=== PATIENT | female | born 1975 | race Caucasian/White ===

== ENCOUNTER 2018-09-20 16:10 | Emergency (ER) | payer OTHER | END 2018-09-20 17:40 | disposition home or self-care (01) | LOC: FER 16:10 ==

== ENCOUNTER 2020-06-22 15:46 | Emergency (ER) | payer OTHER ==
[2020-06-22 16:25] VITALS: TEMP 98.1; BMI 39.5
[2020-06-22 16:50] LABS: BASO % 1.2 % (0-2.0); HEMATOCRIT 38.8 % (32.4-45.2); HEMOGLOBIN 12.6 GM/dl (10.7-15.3); LYMPH % 26.3 % (8-40); MCH 29.4 pg (25.7-33.7); MCHC 32.3 g/dl (32.0-36.0); MEAN CELL VOLUME 90.9 fl (80-96); MEAN PLT VOLUME 8.6 fl (7.5-11.1); MONO % 9.2 % (3.8-10.2); NEUT % 63.3 % (42.8-82.8); PLATELET COUNT 180 K/MM3 (134-434); RBC 4.27 M/mm3 (3.60-5.2); RDW 15.3 % (11.6-15.6); WHITE BLOOD COUNT 7.7 K/mm3 (4.0-10.8)
[2020-06-22 16:53] LABS: ALBUMIN 3.6 g/dl (3.4-5.0); BILIRUBIN,TOTAL 0.5 mg/dl (0.2-1); CALCIUM 9.5 mg/dl (8.5-10); CREATININE 1.3 mg/dl (0.55-1.3); MAGNESIUM 1.8 mg/dL (1.8-2.4); POTASSIUM 4.3 mmol/L (3.5-5.1); TOT PROT 6.2 g/dl (6.4-8.2)
[2020-06-22 17:27] VITALS: BP 136/71; PULSE 90
== END 2020-06-22 17:33 | disposition home or self-care (01) ==
LOC: FER 15:46
DX: R20.2 Paresthesia of skin (principal); R51.9 Headache, unspecified
CPT/HCPCS: 36415; 70450-TC; 80053; 83735; 85025; 99284-25

== ENCOUNTER 2021-04-19 14:13 | Inpatient (IN) | payer OTHER ==
[2021-04-19] MEDS ORDERED: ACETAMINOPHEN 1000 MG/100 ML BAG IVPB ONE (15:11)
[2021-04-19] MEDS ORDERED: ACETAMINOPHEN INJECTION 100 ML IVPB ONE (15:49)
[2021-04-19] MEDS ORDERED: morphine SULFATE 4 MG/ML VIAL IVPUSH ONE (16:20)
[2021-04-19] MEDS ORDERED: morphine SULFATE 4 MG/ML VIAL ONE (16:37)
[2021-04-19 16:40] LABS: BASO % 0.2 % (0-2.0); HEMATOCRIT 38.1 % (32.4-45.2); HEMOGLOBIN 12.4 GM/dL (10.7-15.3); LYMPH % 12.5 % (8-40); MCH 29.5 pg (25.7-33.7); MCHC 32.6 g/dl (32.0-36.0); MEAN CELL VOLUME 90.4 fl (80-96); MEAN PLT VOLUME 9.5 fl (7.5-11.1); MONO % 14.5 % (3.8-10.2); NEUT % 72.8 % (42.8-82.8); PLATELET COUNT 150 10^3/uL (134-434); RBC 4.22 M/mm3 (3.60-5.2); RDW 15.3 % (11.6-15.6)
[2021-04-19 16:41] LABS: VENOUS BASE EXCESS -1.5 mmol/L (-2-2); VENOUS O2 SATURATION 77.4 % (70-80); VENOUS PCO2 33.8 mmHg (38-52); VENOUS PH 7.433 (7.310-7.410)
[2021-04-19 16:53] VITALS: BMI 41.0
[2021-04-19 17:04] LABS: CHLORIDE 107 mmol/L (98-107); SODIUM 142 mmol/L (136-145)
[2021-04-19 17:06] LABS: ANION GAP 9 MMOL/L (8-16); CALCIUM 9.5 mg/dL (8.5-10.1); CO2 26 mmol/L (21-32); GLUCOSE,RANDOM 103 mg/dL (74-106)
[2021-04-19] MEDS ORDERED: SODIUM CHLORIDE 1,000 ML IV STA (17:06)
[2021-04-19 17:07] LABS: ALBUMIN 3.4 g/dl (3.4-5.0); BLOOD UREA NITROGEN 26.2 mg/dL (7-18)
[2021-04-19 17:10] LABS: CREATININE 2.5 mg/dL (0.55-1.3); SGOT/AST 28 U/L (15-37); SGPT/ALT 22 U/L (13-61)
[2021-04-19 17:11] LABS: BILIRUBIN,TOTAL 0.2 mg/dL (0.2-1); TOT PROT 6.6 g/dl (6.4-8.2)
[2021-04-19 17:12] LABS: ALK PHOS 96 U/L (45-117)
[2021-04-19] MEDS ORDERED: HALOPERIDOL LACTATE 5 MG/ML IM ONE (20:07)
[2021-04-19] MEDS ORDERED: MIDAZOLAM HCL 2 MG/2 ML SINGLE DOSE VIAL IVPUSH ONE (20:07)
[2021-04-19] MEDS ORDERED: HALOPERIDOL LACTATE 5 MG/ML ONE (20:16)
[2021-04-19] MEDS ORDERED: MIDAZOLAM HCL 2 MG/2 ML SINGLE DOSE VIAL ONE (20:16)
[2021-04-19] MEDS ORDERED: ACETAMINOPHEN 1000 MG/100 ML BAG IVPB PRN (22:13)
[2021-04-19] MEDS: LACTATED RINGERS SOLUTION 1,000 ML/1,000 ML INFUS.BAG IV SCH (22:39)
[2021-04-19 23:09] LABS: PHOSPHOROUS 2.8 mg/dL (2.5-4.9)
[2021-04-20 05:21] LABS: PH,URINE 5.5 (5.0-8.0); URINE APPEARANCE CLEAR; URINE BILIRUBIN NEGATIVE (NEGATIVE); URINE COLOR YELLOW; URINE GLUCOSE (UA) NEGATIVE (NEGATIVE); URINE KETONE TRACE (NEGATIVE); URINE LEUK ESTERASE NEGATIVE (NEGATIVE); URINE NITRITE NEGATIVE (NEGATIVE); URINE PROTEIN TRACE (NEGATIVE); URINE UROBILINOGEN 0.2 mg/dL (0.2-1.0)
[2021-04-20 05:29] LABS: COCAINE, UR NEGATIVE (NEGATIVE); METHADONE, UR NEGATIVE (NEGATIVE); PHENCYCLIDINE,URINE NEGATIVE (NEGATIVE)
[2021-04-20 05:30] LABS: URINE BARBITURATES NEGATIVE (NEGATIVE)
[2021-04-20 05:47] LABS: OPIATES, URI POSITIVE (NEGATIVE); URINE AMPHETAMINES NEGATIVE (NEGATIVE); URINE BENZODIAZEPINES POSITIVE (NEGATIVE)
[2021-04-20] MEDS ORDERED: HEPARIN NA (PORCINE) 5,000 UNITS/ML 1ML VIAL ONE ×3 (07:00→23:09)
[2021-04-20] MEDS: HEPARIN NA (PORCINE) 5,000 UNITS/ML 1ML VIAL SQ SCH ×2 (07:06→14:43)
[2021-04-20] MEDS ORDERED: DIVALPROEX SODIUM 125 MG TABLET E.C. ONE (09:56)
[2021-04-20] MEDS ORDERED: FAMOTIDINE 20 MG TABLET ONE (09:56)
[2021-04-20] MEDS: FAMOTIDINE 20 MG TABLET PO SCH ×2 (11:26→14:43)
[2021-04-20] MEDS: cloZAPine 100 MG TABLET PO SCH ×2 (11:26→14:44)
[2021-04-20] MEDS: DIVALPROEX SODIUM 500 MG TABLET E.C. PO SCH ×2 (11:26→14:44)
[2021-04-20 15:36] LABS: BASO % 0.1 % (0-2.0); HEMATOCRIT 35.3 % (32.4-45.2); HEMOGLOBIN 11.4 GM/dL (10.7-15.3); MCH 29.2 pg (25.7-33.7); MCHC 32.2 g/dl (32.0-36.0); MEAN CELL VOLUME 90.6 fl (80-96); MEAN PLT VOLUME 9.5 fl (7.5-11.1); MONO % 15.4 % (3.8-10.2); NEUT % 69.5 % (42.8-82.8); PLATELET COUNT 138 10^3/uL (134-434); RDW 15.2 % (11.6-15.6)
[2021-04-20 15:57] LABS: CALCIUM 9.1 mg/dL (8.5-10.1)
[2021-04-20 15:58] LABS: BLOOD UREA NITROGEN 27.1 mg/dL (7-18); MAGNESIUM 2.2 mg/dL (1.8-2.4)
[2021-04-20 16:01] LABS: CREATININE 1.6 mg/dL (0.55-1.3); PHOSPHOROUS 3.6 mg/dL (2.5-4.9)
[2021-04-20] MEDS ORDERED: ATORVASTATIN CA 20 MG TABLET (FP) PO SCH (22:00)
[2021-04-20] MEDS ORDERED: DIVALPROEX SODIUM 500 MG TABLET E.C. ONE (23:09)
[2021-04-20] MEDS ORDERED: DOCUSATE SODIUM 100 MG CAPSULE (FP) PO ONE (23:10)
[2021-04-21] MEDS: DOCUSATE SODIUM 100 MG CAPSULE (FP) PO SCH ×3 (00:11→21:46)
[2021-04-21] MEDS: cloZAPine 100 MG TABLET PO SCH ×2 (00:11→10:39)
[2021-04-21] MEDS: DIVALPROEX SODIUM 500 MG TABLET E.C. PO SCH (00:12)
[2021-04-21] MEDS: HEPARIN NA (PORCINE) 5,000 UNITS/ML 1ML VIAL SQ SCH ×4 (00:12→21:51)
[2021-04-21] MEDS: LACTATED RINGERS SOLUTION 1,000 ML/1,000 ML INFUS.BAG IV SCH (00:23)
[2021-04-21 09:32] LABS: HEMATOCRIT 33.1 % (32.4-45.2); MCH 29.8 pg (25.7-33.7); MCHC 33.1 g/dl (32.0-36.0); MEAN PLT VOLUME 9.5 fl (7.5-11.1); PLATELET COUNT 141 10^3/uL (134-434); RBC 3.68 M/mm3 (3.60-5.2); RDW 15.4 % (11.6-15.6); WHITE BLOOD COUNT 6.1 K/mm3 (4.0-10.0)
[2021-04-21 10:00] LABS: CHLORIDE 107 mmol/L (98-107); SODIUM 141 mmol/L (136-145)
[2021-04-21 10:06] LABS: BLOOD UREA NITROGEN 25.3 mg/dL (7-18)
[2021-04-21 10:08] LABS: GLUCOSE,RANDOM 91 mg/dL (74-106)
[2021-04-21 10:09] LABS: SGPT/ALT 22 U/L (13-61)
[2021-04-21 10:10] LABS: SGOT/AST 26 U/L (15-37)
[2021-04-21 10:11] LABS: ANION GAP 10 MMOL/L (8-16); BILIRUBIN,TOTAL 0.4 mg/dL (0.2-1); CO2 23 mmol/L (21-32); CREATININE 1.3 mg/dL (0.55-1.3); MAGNESIUM 2.2 mg/dL (1.8-2.4); PHOSPHOROUS 3.6 mg/dL (2.5-4.9); TOT PROT 5.8 g/dl (6.4-8.2)
[2021-04-21 10:12] LABS: ALK PHOS 103 U/L (45-117)
[2021-04-21] MEDS ORDERED: PT OWN MED DRAWER 7, Y5N ONE ×2 (10:32→19:02)
[2021-04-21 10:35] LABS: ALBUMIN 2.3 g/dl (3.4-5.0)
[2021-04-21] MEDS: FAMOTIDINE 20 MG TABLET PO SCH (10:39)
[2021-04-21] MEDS: DEXTROSE 5%-NORMAL SALINE 1,000 ML IV SCH (13:49)
[2021-04-21] MEDS ORDERED: CLOZAPINE 200 MG PO SCH (22:00)
[2021-04-21] MEDS ORDERED: DIVALPROEX SODIUM 500 MG TABLET E.C. PO SCH (22:00)
[2021-04-22] MEDS: DEXTROSE 5%-NORMAL SALINE 1,000 ML IV SCH ×2 (01:12→15:19)
[2021-04-22] MEDS: HEPARIN NA (PORCINE) 5,000 UNITS/ML 1ML VIAL SQ SCH ×3 (06:06→21:14)
[2021-04-22 10:01] LABS: HEMATOCRIT 30.1 % (32.4-45.2); HEMOGLOBIN 10.2 GM/dL (10.7-15.3); MCH 30.2 pg (25.7-33.7); MCHC 33.9 g/dl (32.0-36.0); MEAN PLT VOLUME 8.7 fl (7.5-11.1); PLATELET COUNT 177 10^3/uL (134-434); RBC 3.38 M/mm3 (3.60-5.2); RDW 15.4 % (11.6-15.6)
[2021-04-22 10:25] LABS: CHLORIDE 111 mmol/L (98-107); SODIUM 142 mmol/L (136-145)
[2021-04-22] MEDS: FAMOTIDINE 20 MG TABLET PO SCH (10:43)
[2021-04-22] MEDS: DOCUSATE SODIUM 100 MG CAPSULE (FP) PO SCH ×2 (10:43→21:14)
[2021-04-22 10:50] LABS: ANION GAP 8 MMOL/L (8-16); BLOOD UREA NITROGEN 17.5 mg/dL (7-18); CALCIUM 8.5 mg/dL (8.5-10.1); CO2 24 mmol/L (21-32); GLUCOSE,RANDOM 151 mg/dL (74-106); MAGNESIUM 2.2 mg/dL (1.8-2.4)
[2021-04-22 10:51] LABS: SGPT/ALT 34 U/L (13-61)
[2021-04-22 10:53] LABS: CREATININE 1.2 mg/dL (0.55-1.3); PHOSPHOROUS 2.5 mg/dL (2.5-4.9); SGOT/AST 38 U/L (15-37)
[2021-04-22 10:54] LABS: BILIRUBIN,TOTAL 0.4 mg/dL (0.2-1); TOT PROT 5.2 g/dl (6.4-8.2)
[2021-04-22 11:22] LABS: ALK PHOS 164 U/L (45-117)
[2021-04-23] MEDS: DEXTROSE 5%-NORMAL SALINE 1,000 ML IV SCH ×2 (03:04→14:05)
[2021-04-23] MEDS: HEPARIN NA (PORCINE) 5,000 UNITS/ML 1ML VIAL SQ SCH ×3 (05:54→21:23)
[2021-04-23] MEDS ORDERED: PT OWN MED DRAWER 7, Y5N ONE (09:34)
[2021-04-23] MEDS: DOCUSATE SODIUM 100 MG CAPSULE (FP) PO SCH ×2 (09:38→21:23)
[2021-04-23] MEDS: FAMOTIDINE 20 MG TABLET PO SCH (09:39)
[2021-04-23 10:08] LABS: HEMATOCRIT 29.4 % (32.4-45.2); HEMOGLOBIN 9.6 GM/dL (10.7-15.3); MCH 29.6 pg (25.7-33.7); MCHC 32.8 g/dl (32.0-36.0); MEAN CELL VOLUME 90.1 fl (80-96); MEAN PLT VOLUME 9.2 fl (7.5-11.1); PLATELET COUNT 230 10^3/uL (134-434); RBC 3.26 M/mm3 (3.60-5.2); RDW 15.4 % (11.6-15.6); WHITE BLOOD COUNT 4.9 K/mm3 (4.0-10.0)
[2021-04-23 10:20] LABS: CHLORIDE 112 mmol/L (98-107); SODIUM 143 mmol/L (136-145)
[2021-04-23 10:28] LABS: ALBUMIN 1.9 g/dl (3.4-5.0); ANION GAP 8 MMOL/L (8-16); BLOOD UREA NITROGEN 15.2 mg/dL (7-18); CALCIUM 8.6 mg/dL (8.5-10.1); CO2 23 mmol/L (21-32); GLUCOSE,RANDOM 104 mg/dL (74-106)
[2021-04-23 10:30] LABS: CREATININE 1.1 mg/dL (0.55-1.3); PHOSPHOROUS 2.8 mg/dL (2.5-4.9); SGOT/AST 54 U/L (15-37)
[2021-04-23 10:31] LABS: SGPT/ALT 57 U/L (13-61)
[2021-04-23 10:32] LABS: BILIRUBIN,TOTAL 0.4 mg/dL (0.2-1); TOT PROT 4.8 g/dl (6.4-8.2)
[2021-04-23 11:06] LABS: ALK PHOS 215 U/L (45-117)
[2021-04-23] MEDS: DIVALPROEX SODIUM 500 MG TABLET E.C. PO SCH (21:23)
[2021-04-23] MEDS ORDERED: cloZAPine 100 MG TABLET PO SCH (22:00)
[2021-04-24] MEDS: HEPARIN NA (PORCINE) 5,000 UNITS/ML 1ML VIAL SQ SCH ×3 (05:37→21:38)
[2021-04-24 09:34] LABS: HEMATOCRIT 29.8 % (32.4-45.2); HEMOGLOBIN 9.8 GM/dL (10.7-15.3); MCH 29.6 pg (25.7-33.7); MCHC 32.9 g/dl (32.0-36.0); MEAN CELL VOLUME 89.8 fl (80-96); MEAN PLT VOLUME 8.5 fl (7.5-11.1); PLATELET COUNT 275 10^3/uL (134-434); RBC 3.31 M/mm3 (3.60-5.2); RDW 14.7 % (11.6-15.6); WHITE BLOOD COUNT 6.3 K/mm3 (4.0-10.0)
[2021-04-24 09:58] LABS: CALCIUM 9.1 mg/dL (8.5-10.1); MAGNESIUM 2.1 mg/dL (1.8-2.4)
[2021-04-24] MEDS ORDERED: CLOZAPINE 200 MG PO SCH (10:00)
[2021-04-24 10:01] LABS: PHOSPHOROUS 3.4 mg/dL (2.5-4.9)
[2021-04-24 10:02] LABS: BILIRUBIN,TOTAL 0.5 mg/dL (0.2-1)
[2021-04-24 10:03] LABS: TOT PROT 5.2 g/dl (6.4-8.2)
[2021-04-24] MEDS ORDERED: PT OWN MED DRAWER 7, Y5N ONE ×2 (10:14→21:31)
[2021-04-24] MEDS: DOCUSATE SODIUM 100 MG CAPSULE (FP) PO SCH ×2 (11:12→21:38)
[2021-04-24] MEDS: FAMOTIDINE 20 MG TABLET PO SCH (11:12)
[2021-04-24] MEDS: cloZAPine 100 MG TABLET PO SCH ×2 (11:12→21:38)
[2021-04-24] MEDS: DIVALPROEX SODIUM 500 MG TABLET E.C. PO SCH (21:38)
[2021-04-25] MEDS: HEPARIN NA (PORCINE) 5,000 UNITS/ML 1ML VIAL SQ SCH ×3 (05:42→22:33)
[2021-04-25 08:31] LABS: HEMOGLOBIN 9.4 GM/dL (10.7-15.3); MCH 30.2 pg (25.7-33.7); MCHC 33.7 g/dl (32.0-36.0); MEAN CELL VOLUME 89.7 fl (80-96); MEAN PLT VOLUME 7.7 fl (7.5-11.1); PLATELET COUNT 281 10^3/uL (134-434); RBC 3.12 M/mm3 (3.60-5.2); WHITE BLOOD COUNT 6.8 K/mm3 (4.0-10.0)
[2021-04-25 09:14] LABS: BLOOD UREA NITROGEN 12.7 mg/dL (7-18)
[2021-04-25 09:17] LABS: PHOSPHOROUS 3.8 mg/dL (2.5-4.9)
[2021-04-25 09:18] LABS: BILIRUBIN,TOTAL 0.4 mg/dL (0.2-1); TOT PROT 5.1 g/dl (6.4-8.2)
[2021-04-25] MEDS: DOCUSATE SODIUM 100 MG CAPSULE (FP) PO SCH ×2 (09:30→22:33)
[2021-04-25] MEDS: FAMOTIDINE 20 MG TABLET PO SCH (09:30)
[2021-04-25] MEDS: cloZAPine 100 MG TABLET PO SCH ×2 (09:30→22:32)
[2021-04-25] MEDS ORDERED: ACETAMINOPHEN 325 MG TABLET (FP) PO PRN (10:19)
[2021-04-25] MEDS: DIVALPROEX SODIUM 500 MG TABLET E.C. PO SCH (22:31)
[2021-04-26] MEDS: HEPARIN NA (PORCINE) 5,000 UNITS/ML 1ML VIAL SQ SCH ×3 (06:50→21:13)
[2021-04-26] MEDS ORDERED: PT OWN MED DRAWER 7, Y5N ONE (08:59)
[2021-04-26 09:09] LABS: HEMOGLOBIN 9.7 GM/dL (10.7-15.3); MCH 30.1 pg (25.7-33.7); MCHC 33.6 g/dl (32.0-36.0); MEAN CELL VOLUME 89.5 fl (80-96); PLATELET COUNT 323 10^3/uL (134-434); RBC 3.24 M/mm3 (3.60-5.2); RDW 15.1 % (11.6-15.6); WHITE BLOOD COUNT 7.4 K/mm3 (4.0-10.0)
[2021-04-26] MEDS: cloZAPine 100 MG TABLET PO SCH ×2 (09:32→21:13)
[2021-04-26] MEDS: DOCUSATE SODIUM 100 MG CAPSULE (FP) PO SCH ×2 (09:32→21:13)
[2021-04-26] MEDS: FAMOTIDINE 20 MG TABLET PO SCH (09:32)
[2021-04-26 09:58] LABS: CALCIUM 9.2 mg/dL (8.5-10.1)
[2021-04-26 09:59] LABS: ALBUMIN 2.1 g/dl (3.4-5.0)
[2021-04-26 10:01] LABS: PHOSPHOROUS 3.6 mg/dL (2.5-4.9)
[2021-04-26 10:03] LABS: BILIRUBIN,TOTAL 0.5 mg/dL (0.2-1); TOT PROT 5.3 g/dl (6.4-8.2)
[2021-04-26] MEDS: ACETAMINOPHEN 325 MG TABLET (FP) PO PRN ×2 (13:26→20:50)
[2021-04-26] MEDS: DIVALPROEX SODIUM 500 MG TABLET E.C. PO SCH (21:13)
[2021-04-27 04:02] VITALS: PULSE 97
[2021-04-27 09:20] LABS: HEMATOCRIT 32.2 % (32.4-45.2); HEMOGLOBIN 10.6 GM/dL (10.7-15.3); MCH 29.7 pg (25.7-33.7); MCHC 32.8 g/dl (32.0-36.0); MEAN CELL VOLUME 90.6 fl (80-96); MEAN PLT VOLUME 8.1 fl (7.5-11.1); PLATELET COUNT 356 10^3/uL (134-434); RBC 3.56 M/mm3 (3.60-5.2); WHITE BLOOD COUNT 7.5 K/mm3 (4.0-10.0)
[2021-04-27 09:39] LABS: ALBUMIN 2.1 g/dl (3.4-5.0); BILIRUBIN,TOTAL 0.4 mg/dL (0.2-1); BLOOD UREA NITROGEN 16.1 mg/dL (7-18); CALCIUM 9.2 mg/dL (8.5-10.1); CREATININE 1.1 mg/dL (0.55-1.3); PHOSPHOROUS 3.3 mg/dL (2.5-4.9); TOT PROT 5.6 g/dl (6.4-8.2)
[2021-04-27] MEDS ORDERED: PT OWN MED DRAWER 7, Y5N ONE (11:19)
[2021-04-27] MEDS: DOCUSATE SODIUM 100 MG CAPSULE (FP) PO SCH (11:20)
[2021-04-27] MEDS: cloZAPine 100 MG TABLET PO SCH (11:20)
[2021-04-27] MEDS: FAMOTIDINE 20 MG TABLET PO SCH (11:20)
[2021-04-27 17:05] VITALS: BP 119/74; TEMP 97.8
== END 2021-04-27 17:09 | disposition home or self-care (01) | DRG 177 ==
LOC: JER 14:13 → JERBED 20:48 → J8W 04-21 03:56
PROVIDERS: ADMIT Internal Medicine; ATTEND Internal Medicine
DX: U07.1 COVID-19 (principal); G93.41 Metabolic encephalopathy; N17.9 Acute kidney failure, unspecified; M62.82 Rhabdomyolysis; Z68.41 Body mass index [BMI] 40.0-44.9, adult; E87.0 Hyperosmolality and hypernatremia; J98.11 Atelectasis; E66.9 Obesity, unspecified; S82.54XA Nondisplaced fracture of medial malleolus of right tibia, initial encounter for closed fracture; F31.9 Bipolar disorder, unspecified; E78.5 Hyperlipidemia, unspecified; K21.9 Gastro-esophageal reflux disease without esophagitis; W19.XXXA Unspecified fall, initial encounter; Y93.9 Activity, unspecified; Y92.89 Other specified places as the place of occurrence of the external cause; Y99.9 Unspecified external cause status
CPT/HCPCS: 36415; 70450-TC; 70551-TC; 71045-TC-FY; 72125-TC; 72128-TC; 72148-TC; 73523-TC-FY; 73560-TC-RT-FY; 73590-TC-RT-FY; 73610-TC-RT-FY; 73700-TC-RT; 74176-TC; 76775-TC; 80048; 80053; 80164; 80307; 81003; 82140; 82550; 82553; 82803; 82962; 83735; 84100; 84443; 84484; 84702; 85025; 85027; 87086; 93005; 93010; 97116-GP; 97161-GP; 99285-25; C9803-CS; J1644; U0003; U0005

== ENCOUNTER 2021-04-30 10:27 | Day surgery (SDC) | payer OTHER ==
[2021-04-30 11:45] VITALS: BMI 39.5
[2021-04-30] MEDS ORDERED: MIDAZOLAM HCL 2 MG/2 ML SINGLE DOSE VIAL ONE (14:14)
[2021-04-30] MEDS ORDERED: PROPOFOL 20 ML ONE (14:14)
[2021-04-30] MEDS ORDERED: ACETAMINOPHEN 325 MG TABLET (FP) PO PRN (14:44)
[2021-04-30] MEDS ORDERED: ceFAZolin SODIUM 1 GM VIAL ONE (14:48)
[2021-04-30] MEDS ORDERED: DEXAMETHASONE SOD PHOSPHATE 4 MG/1 ML VIAL ONE (15:17)
[2021-04-30] MEDS ORDERED: HYDROmorphone HCL/PF 1 MG/ML VIAL ONE ×2 (15:29→16:44)
[2021-04-30] MEDS ORDERED: SODIUM CHLORIDE 0.9% P/F 10 ML VIAL IJ ONE (15:39)
[2021-04-30] MEDS ORDERED: ONDANSETRON 4 MG/2 ML VIAL ONE (16:44)
[2021-04-30] MEDS ORDERED: KETOROLAC TROMETHAMINE 30 MG/1 ML VIAL ONE (16:52)
[2021-04-30] MEDS ORDERED: ONDANSETRON 4 MG/2 ML VIAL IVPUSH PRN (17:22)
[2021-04-30] MEDS ORDERED: ACETAMINOPHEN 1000 MG/100 ML BAG IVPB PRN (17:23)
[2021-04-30] MEDS ORDERED: ACETAMINOPHEN INJECTION 100 ML IVPB ONE (17:24)
[2021-04-30] MEDS ORDERED: oxyCODONE HCL 5 MG TABLET PO PRN (17:24)
[2021-04-30] MEDS ORDERED: HYDROmorphone HCl 2 MG/ML VIAL IVPUSH ONE (17:24)
[2021-04-30] MEDS ORDERED: HYDROmorphone HCl 2 MG/ML VIAL IVPB PRN (17:28)
[2021-04-30] MEDS ORDERED: LACTATED RINGERS SOLUTION 1,000 ML IV SCH (17:30)
[2021-04-30 18:16] LABS: CALCIUM 9.7 mg/dl (8.5-10); CREATININE 1.5 mg/dl (0.55-1.3)
[2021-04-30 18:40] LABS: HEMATOCRIT 33.2 % (32.4-45.2); HEMOGLOBIN 10.9 GM/dL (10.7-15.3); MCH 29.3 pg (25.7-33.7); MCHC 32.7 g/dl (32.0-36.0); MEAN CELL VOLUME 89.6 fl (80-96); MEAN PLT VOLUME 8.1 fl (7.5-11.1); PLATELET COUNT 386 10^3/uL (134-434); RDW 15.1 % (11.6-15.6); WHITE BLOOD COUNT 11.4 K/mm3 (4.0-10.0)
[2021-04-30] MEDS: CEFAZOLIN 1 GM/D5W 1 GM/50 ML BAG IVPB SCH (22:34)
[2021-05-01] MEDS: CEFAZOLIN 1 GM/D5W 1 GM/50 ML BAG IVPB SCH ×2 (02:00→11:29)
[2021-05-01] MEDS: oxyCODONE HCL 5 MG TABLET PO PRN ×2 (04:33→13:10)
[2021-05-01 06:36] VITALS: TEMP 98.1
[2021-05-01 11:15] VITALS: BP 104/79; PULSE 106
[2021-05-01] MEDS ORDERED: ENOXAPARIN NA (PORCINE) 40 MG/0.4 ML DISP.SYRIN SQ SCH (14:00)
== END 2021-05-01 13:33 ==
LOC: FASUSAT 10:27 → FM/S 20:12 → FASUSAT 05-01 13:33
PROVIDERS: ATTEND Orthopaedic Surgery Sports Medicine
PROC: 0SSF0ZZ Reposition Right Ankle Joint, Open Approach (ICD-10-PCS; 2021-04-30)
PROC: 0QSG04Z Reposition Right Tibia with Internal Fixation Device, Open Approach (ICD-10-PCS; principal; 2021-04-30 15:06)
DX: S82.51XA Displaced fracture of medial malleolus of right tibia, initial encounter for closed fracture (principal); S93.431A Sprain of tibiofibular ligament of right ankle, initial encounter; W19.XXXA Unspecified fall, initial encounter; Y93.9 Activity, unspecified; Y92.009 Unspecified place in unspecified non-institutional (private) residence as the place of occurrence of the external cause
CPT/HCPCS: 27766; 27829; C1713; 36415; 80048; 84702; 85027; 94760; 97116-GP; J0131

== ENCOUNTER 2022-03-30 12:29 | Emergency (ER) | payer OTHER ==
[2022-03-30 12:45] VITALS: BP 133/79; PULSE 118; RESP 16; TEMP 98.4; BMI 37.2
[2022-03-30] MEDS ORDERED: DIPHTH,PERTUSS(ACELL),TET 0.5 ML DISP.SYRIN IM ONE ×2 (12:49→12:53)
[2022-03-30] MEDS ORDERED: IBUPROFEN 600 MG TABLET (FP) PO ONE ×2 (12:49→12:52)
== END 2022-03-30 16:26 ==
LOC: FER 12:29
PROC: 3E0234Z Introduction of Serum, Toxoid and Vaccine into Muscle, Percutaneous Approach (ICD-10-PCS; principal; 2022-03-30)
DX: S93.401A Sprain of unspecified ligament of right ankle, initial encounter (principal); W19.XXXA Unspecified fall, initial encounter
CPT/HCPCS: 0241U-QW; 73590-TC-RT-FY; 73610-TC-RT-FY; 73630-TC-RT-FY; 90471; 90715; 99284-25

== ENCOUNTER 2022-11-23 14:44 | Inpatient (IN) | payer OTHER ==
[2022-11-23] MEDS ORDERED: FAMOTIDINE 20 MG/50 ML IVPB 20 MG/50 ML MG IVPB ONE ×2 (15:06→15:20)
[2022-11-23] MEDS ORDERED: SODIUM CHLORIDE 0.9% 500 ML INFUS.BAG IV ONE (15:06)
[2022-11-23] MEDS ORDERED: ACETAMINOPHEN 1000 MG/100 ML BAG IVPB ONE (15:06)
[2022-11-23] MEDS ORDERED: ONDANSETRON 4 MG/2 ML VIAL IVPB ONE ×2 (15:07→18:32)
[2022-11-23] MEDS ORDERED: ONDANSETRON 4 MG/2 ML VIAL ONE ×2 (15:20→18:46)
[2022-11-23] MEDS ORDERED: ACETAMINOPHEN INJECTION 100 ML IVPB ONE (15:20)
[2022-11-23 16:40] LABS: HEMATOCRIT 43.5 % (32.4-45.2); HEMOGLOBIN 14.6 G/dL (10.7-15.3); MCH 30.9 pg (25.7-33.7); MCHC 33.6 g/dl (32.0-36.0); MEAN PLT VOLUME 9.1 fl (7.5-11.1); PLATELET COUNT 164.2 10^3/uL (134-434); RBC 4.73 10^6/uL (3.60-5.2); RDW 15.7 % (11.6-15.6); WHITE BLOOD COUNT 4.3 10^3/uL (4.0-10.8)
[2022-11-23 16:53] LABS: ALBUMIN 4.2 g/dl (3.4-5.0); BILIRUBIN,TOTAL 0.4 mg/dl (0.2-1); BLOOD UREA NITROGEN 28.5 mg/dl (7-18); CALCIUM 9.9 mg/dl (8.5-10.1); CREATININE 1.8 mg/dl (0.6-1.3); MAGNESIUM 1.7 mg/dL (1.8-2.4); PHOSPHOROUS 4.53 (2.5-4.9); SGOT/AST 17.3 U/L (15-37); SGPT/ALT 21.6 U/L (7-52); TOT PROT 6.5 g/dl (6.4-8.2)
[2022-11-23] MEDS ORDERED: SODIUM CHLORIDE 1,000 ML IV ONE (17:07)
[2022-11-23 17:48] LABS: PLATELET ESTIMATE ADEQUATE
[2022-11-23] MEDS ORDERED: morphine SULFATE 4 MG/ML VIAL IVPUSH ONE (18:33)
[2022-11-23] MEDS ORDERED: morphine SULFATE 4 MG/ML VIAL ONE (18:45)
[2022-11-23] MEDS: DEXTROSE 5%-NORMAL SALINE 1,000 ML IV SCH (21:12)
[2022-11-23] MEDS ORDERED: MAGNESIUM SULF 50% (8.12 MEQ/2 ML-1 GM VIAL) IVPB ONE (21:15)
[2022-11-23] MEDS ORDERED: HALOPERIDOL LACTATE 5 MG/ML IM PRN (21:19)
[2022-11-23] MEDS ORDERED: TRIMETHOBENZAMIDE HCL 200MG/2ML INJ IM PRN (21:20)
[2022-11-23] MEDS ORDERED: MAGNESIUM SULF 50% (8.12 MEQ/2 ML-1 GM VIAL) ONE (21:30)
[2022-11-23] MEDS ORDERED: VALPROATE SODIUM 500 MG/5 ML VIAL IVPB SCH (22:00)
[2022-11-23] MEDS: VALPROATE SODIUM INJECTION 250 MG in DEXTROSE 5%-WATER - 100 ML IVPB SCH ×2 (23:43→23:52)
[2022-11-23] MEDS ORDERED: ACETAMINOPHEN 1000 MG/100 ML BAG IVPB PRN (23:45)
[2022-11-24] MEDS ORDERED: ONDANSETRON 4 MG/2 ML VIAL IVPUSH PRN (01:00)
[2022-11-24 06:48] LABS: HEMATOCRIT 38.3 % (32.4-45.2); HEMOGLOBIN 12.7 GM/dL (10.7-15.3); MCH 30.4 pg (25.7-33.7); MCHC 33.2 g/dl (32.0-36.0); MEAN CELL VOLUME 91.6 fl (80-96); MEAN PLT VOLUME 9.9 fl (7.5-11.1); PLATELET COUNT 162 10^3/uL (134-434); RBC 4.18 M/mm3 (3.60-5.2); WHITE BLOOD COUNT 3.8 K/mm3 (4.0-10.0)
[2022-11-24 06:54] LABS: INR 1.01 (0.83-1.09); PROTHROMBIN TIME (PATIENT) 11.7 SEC (9.7-13.0)
[2022-11-24 06:56] LABS: ACTIVATED PTT 38.5 SECONDS (25.2-36.5)
[2022-11-24 07:06] LABS: POTASSIUM 4.1 mmol/L (3.5-5.1)
[2022-11-24 07:12] LABS: CALCIUM 9.1 mg/dL (8.5-10.1)
[2022-11-24 07:13] LABS: MAGNESIUM 2.4 mg/dL (1.8-2.4)
[2022-11-24 07:16] LABS: CREATININE 1.4 mg/dL (0.55-1.3); PHOSPHOROUS 3.9 mg/dL (2.5-4.9)
[2022-11-24 09:16] LABS: ANISOCYTOSIS 0; HELMET CELLS 0; HOWELL-JOLLY BODIES 0; MACROCYTOSIS 0; OVALOCYTE 0; ROULEAU 0; SICKELED CELLS 0; TARGET CELLS 0; TEAR DROP CELLS 0; TOXIC GRANULATION 0
[2022-11-24] MEDS ORDERED: FAMOTIDINE 20 MG/50 ML IVPB 20 MG/50 ML MG IVPB ONE (10:06)
[2022-11-24] MEDS: FAMOTIDINE 20 MG/50 ML IVPB 20 MG/50 ML MG IVPB SCH (10:11)
[2022-11-24] MEDS: VALPROATE SODIUM INJECTION 250 MG in DEXTROSE 5%-WATER - 100 ML IVPB SCH ×2 (11:10→22:40)
[2022-11-24] MEDS ORDERED: ACETAMINOPHEN 1000 MG/100 ML BAG IVPB PRN (11:27)
[2022-11-24 18:37] VITALS: BMI 38.2
[2022-11-24] MEDS ORDERED: cloZAPine 25 MG TABLET PO ONE (21:02)
[2022-11-24] MEDS ORDERED: cloZAPine 100 MG TABLET PO ONE (21:15)
[2022-11-25 08:53] LABS: HEMATOCRIT 36.6 % (32.4-45.2); MCH 30.2 pg (25.7-33.7); MCHC 32.7 g/dl (32.0-36.0); MEAN CELL VOLUME 92.3 fl (80-96); MEAN PLT VOLUME 10.6 fl (7.5-11.1); RBC 3.97 M/mm3 (3.60-5.2); RDW 15.9 % (11.6-15.6); WHITE BLOOD COUNT 4.5 K/mm3 (4.0-10.0)
[2022-11-25 09:24] LABS: POTASSIUM 3.7 mmol/L (3.5-5.1)
[2022-11-25 09:38] LABS: CALCIUM 8.9 mg/dL (8.5-10.1)
[2022-11-25 09:39] LABS: BLOOD UREA NITROGEN 17.4 mg/dL (7-18)
[2022-11-25 09:42] LABS: CREATININE 1.1 mg/dL (0.55-1.3); PHOSPHOROUS 2.7 mg/dL (2.5-4.9)
[2022-11-25 09:48] VITALS: RESP 18
[2022-11-25 10:04] LABS: ANISOCYTOSIS 0; HELMET CELLS 0; HOWELL-JOLLY BODIES 0; MACROCYTOSIS 0; OVALOCYTE 0; ROULEAU 0; SICKELED CELLS 0; TARGET CELLS 0; TEAR DROP CELLS 0; TOXIC GRANULATION 0
[2022-11-25 10:06] LABS: PLATELET COUNT 144 10^3/uL (134-434)
[2022-11-25] MEDS: VALPROATE SODIUM INJECTION 250 MG in DEXTROSE 5%-WATER - 100 ML IVPB SCH (11:18)
[2022-11-25] MEDS ORDERED: cloZAPine 100 MG TABLET PO SCH (12:00)
[2022-11-25] MEDS: FAMOTIDINE 20 MG/50 ML IVPB 20 MG/50 ML MG IVPB SCH (12:51)
[2022-11-25] MEDS: DEXTROSE 5%-NORMAL SALINE 1,000 ML IV SCH (12:52)
[2022-11-25] MEDS: cloZAPine 100 MG TABLET PO SCH ×2 (17:50→21:49)
[2022-11-25] MEDS: DIVALPROEX SODIUM 500 MG TABLET E.C. PO SCH (21:50)
[2022-11-26 07:51] LABS: HEMATOCRIT 33.8 % (32.4-45.2); HEMOGLOBIN 11.2 GM/dL (10.7-15.3); MCH 30.7 pg (25.7-33.7); MCHC 33.2 g/dl (32.0-36.0); MEAN CELL VOLUME 92.5 fl (80-96); MEAN PLT VOLUME 9.4 fl (7.5-11.1); PLATELET COUNT 191 10^3/uL (134-434); RBC 3.65 M/mm3 (3.60-5.2); RDW 15.8 % (11.6-15.6); WHITE BLOOD COUNT 5.2 K/mm3 (4.0-10.0)
[2022-11-26] MEDS ORDERED: CYCLOBENZAPRINE HCL 10 MG TABLET (FP) PO PRN (07:56)
[2022-11-26 08:07] LABS: CALCIUM 8.7 mg/dL (8.5-10.1)
[2022-11-26 08:08] LABS: BLOOD UREA NITROGEN 13.7 mg/dL (7-18)
[2022-11-26 08:11] LABS: CREATININE 1.1 mg/dL (0.55-1.3)
[2022-11-26] MEDS: LIDOCAINE 5% TOPICAL PATCH TP SCH (09:15)
[2022-11-26] MEDS: FAMOTIDINE 20 MG/50 ML IVPB 20 MG/50 ML MG IVPB SCH (09:15)
[2022-11-26] MEDS: ENOXAPARIN NA (PORCINE) 40 MG/0.4 ML DISP.SYRIN SQ SCH (09:16)
[2022-11-26] MEDS: cloZAPine 100 MG TABLET PO SCH ×2 (18:03→21:32)
[2022-11-26] MEDS: ONDANSETRON 4 MG/2 ML VIAL IVPUSH PRN (19:40)
[2022-11-26] MEDS: DIVALPROEX SODIUM 500 MG TABLET E.C. PO SCH (21:32)
[2022-11-26] MEDS: LIDOCAINE PATCH REMOVAL MC SCH (21:33)
[2022-11-27 08:32] LABS: HEMATOCRIT 33.8 % (32.4-45.2); HEMOGLOBIN 11.2 GM/dL (10.7-15.3); MCH 30.4 pg (25.7-33.7); MCHC 33.1 g/dl (32.0-36.0); MEAN CELL VOLUME 91.9 fl (80-96); MEAN PLT VOLUME 9.1 fl (7.5-11.1); PLATELET COUNT 199 10^3/uL (134-434); RBC 3.68 M/mm3 (3.60-5.2); RDW 15.7 % (11.6-15.6); WHITE BLOOD COUNT 6.4 K/mm3 (4.0-10.0)
[2022-11-27 08:43] LABS: POTASSIUM 3.6 mmol/L (3.5-5.1)
[2022-11-27 08:46] LABS: CALCIUM 8.3 mg/dL (8.5-10.1); MAGNESIUM 1.7 mg/dL (1.8-2.4)
[2022-11-27 08:47] LABS: BLOOD UREA NITROGEN 9.6 mg/dL (7-18)
[2022-11-27 08:50] LABS: CREATININE 1.2 mg/dL (0.55-1.3); PHOSPHOROUS 3.1 mg/dL (2.5-4.9)
[2022-11-27] MEDS: LIDOCAINE 5% TOPICAL PATCH TP SCH (10:06)
[2022-11-27] MEDS: ENOXAPARIN NA (PORCINE) 40 MG/0.4 ML DISP.SYRIN SQ SCH (10:06)
[2022-11-27] MEDS: FAMOTIDINE 20 MG/50 ML IVPB 20 MG/50 ML MG IVPB SCH (10:06)
[2022-11-27] MEDS: ONDANSETRON 4 MG/2 ML VIAL IVPUSH PRN (10:14)
[2022-11-27] MEDS ORDERED: MAGNESIUM SULF 50% (8.12 MEQ/2 ML-1 GM VIAL) IVPB ONE (12:13)
[2022-11-27] MEDS: ELECTROLYTE-148 SOLN 1,000 ML IV SCH (15:35)
[2022-11-27] MEDS: cloZAPine 100 MG TABLET PO SCH ×2 (17:44→21:27)
[2022-11-27] MEDS: DIVALPROEX SODIUM 500 MG TABLET E.C. PO SCH (21:27)
[2022-11-27] MEDS: LIDOCAINE PATCH REMOVAL MC SCH (21:28)
[2022-11-28 09:19] LABS: BASO % 0.5 % (0-2.0); HEMATOCRIT 39.2 % (32.4-45.2); HEMOGLOBIN 12.9 GM/dL (10.7-15.3); LYMPH % 30.2 % (8-40); MCH 30.4 pg (25.7-33.7); MCHC 32.9 g/dl (32.0-36.0); MEAN CELL VOLUME 92.2 fl (80-96); MEAN PLT VOLUME 8.8 fl (7.5-11.1); MONO % 13.3 % (3.8-10.2); PLATELET COUNT 237 10^3/uL (134-434); RBC 4.26 M/mm3 (3.60-5.2); WHITE BLOOD COUNT 7.9 K/mm3 (4.0-10.0)
[2022-11-28 09:39] LABS: POTASSIUM 3.8 mmol/L (3.5-5.1)
[2022-11-28] MEDS: ENOXAPARIN NA (PORCINE) 40 MG/0.4 ML DISP.SYRIN SQ SCH (09:39)
[2022-11-28] MEDS: FAMOTIDINE 20 MG/50 ML IVPB 20 MG/50 ML MG IVPB SCH (09:39)
[2022-11-28] MEDS: ELECTROLYTE-148 SOLN 1,000 ML IV SCH (09:40)
[2022-11-28 09:42] LABS: BLOOD UREA NITROGEN 6.6 mg/dL (7-18)
[2022-11-28 09:43] LABS: ALBUMIN 2.8 g/dl (3.4-5.0); MAGNESIUM 2.1 mg/dL (1.8-2.4)
[2022-11-28 09:46] LABS: CREATININE 1.1 mg/dL (0.55-1.3); PHOSPHOROUS 3.2 mg/dL (2.5-4.9)
[2022-11-28 09:47] LABS: BILIRUBIN,TOTAL 0.2 mg/dL (0.2-1); TOT PROT 5.9 g/dl (6.4-8.2)
[2022-11-28] MEDS: LIDOCAINE 5% TOPICAL PATCH TP SCH (09:56)
[2022-11-28] MEDS: cloZAPine 100 MG TABLET PO SCH ×2 (16:56→21:23)
[2022-11-28] MEDS: DEXTROSE 5%-0.45% SALINE 1,000 ML IV SCH (16:57)
[2022-11-28] MEDS: DIVALPROEX SODIUM 500 MG TABLET E.C. PO SCH (21:24)
[2022-11-28] MEDS: DOCUSATE SODIUM 100 MG CAPSULE (FP) PO SCH (21:24)
[2022-11-28] MEDS: LIDOCAINE PATCH REMOVAL MC SCH (21:27)
[2022-11-28] MEDS ORDERED: SENNOSIDES 8.6MG TABLET (FP) PO SCH (22:00)
[2022-11-28 23:32] VITALS: TEMP 97.7
[2022-11-29 06:33] VITALS: BP 119/75; PULSE 83
[2022-11-29] MEDS: DOCUSATE SODIUM 100 MG CAPSULE (FP) PO SCH ×2 (06:40→14:26)
[2022-11-29] MEDS: LIDOCAINE 5% TOPICAL PATCH TP SCH (09:29)
[2022-11-29] MEDS: FAMOTIDINE 20 MG/50 ML IVPB 20 MG/50 ML MG IVPB SCH (09:30)
[2022-11-29] MEDS: ENOXAPARIN NA (PORCINE) 40 MG/0.4 ML DISP.SYRIN SQ SCH (09:36)
[2022-11-29 09:56] LABS: HEMATOCRIT 33.3 % (32.4-45.2); HEMOGLOBIN 11.1 GM/dL (10.7-15.3); MCH 30.6 pg (25.7-33.7); MCHC 33.2 g/dl (32.0-36.0); MEAN CELL VOLUME 92.1 fl (80-96); MEAN PLT VOLUME 8.5 fl (7.5-11.1); PLATELET COUNT 230 10^3/uL (134-434); RBC 3.62 M/mm3 (3.60-5.2)
[2022-11-29] MEDS ORDERED: POLYETHYLENE GLYCOL (HEALTHYLAX) 3350 17 GM PACKET PO SCH (10:00)
[2022-11-29 10:23] LABS: POTASSIUM 3.6 mmol/L (3.5-5.1)
[2022-11-29 10:26] LABS: BLOOD UREA NITROGEN 5.9 mg/dL (7-18); CALCIUM 8.6 mg/dL (8.5-10.1)
[2022-11-29 10:27] LABS: ALBUMIN 2.4 g/dl (3.4-5.0); MAGNESIUM 1.8 mg/dL (1.8-2.4)
[2022-11-29 10:29] LABS: PHOSPHOROUS 3.3 mg/dL (2.5-4.9)
[2022-11-29 10:31] LABS: BILIRUBIN,TOTAL 0.1 mg/dL (0.2-1); TOT PROT 4.8 g/dl (6.4-8.2)
[2022-11-29] MEDS: DEXTROSE 5%-0.45% SALINE 1,000 ML IV SCH (14:29)
== END 2022-11-29 15:14 | disposition home or self-care (01) | DRG 389 ==
LOC: FER 14:44 → J8W 11-24 16:18
PROVIDERS: ADMIT Surgery; ATTEND Internal Medicine
DX: K56.609 Unspecified intestinal obstruction, unspecified as to partial versus complete obstruction (principal); N17.9 Acute kidney failure, unspecified; N83.202 Unspecified ovarian cyst, left side; K21.9 Gastro-esophageal reflux disease without esophagitis; E78.5 Hyperlipidemia, unspecified; F31.9 Bipolar disorder, unspecified; E83.42 Hypomagnesemia
CPT/HCPCS: 0241U-QW; 36415; 74018-TC-FY; 74019-TC-FY; 74176-TC; 74250-TC-FY; 76705-TC; 80048; 80053; 80164; 83690; 83735; 84100; 84484; 85025; 85027; 85610; 85730; 93005; 99285-25

== ENCOUNTER 2023-02-28 09:47 | Day surgery (SDC) | payer OTHER ==
[2023-02-24 16:12] VITALS: BMI 36.5
[2023-02-28 10:37] VITALS: TEMP 97.7
[2023-02-28 12:41] VITALS: RESP 16
[2023-02-28 12:43] VITALS: BP 116/75; PULSE 66
== END 2023-02-28 12:50 | disposition home or self-care (01) ==
LOC: FASU-ENDO 09:47
PROVIDERS: ATTEND Internal Medicine Gastroenterology
PROC: 0DBH8ZX Excision of Cecum, Via Natural or Artificial Opening Endoscopic, Diagnostic (ICD-10-PCS; principal; 2023-02-28 11:45)
DX: Z12.11 Encounter for screening for malignant neoplasm of colon (principal); K52.9 Noninfective gastroenteritis and colitis, unspecified; Z86.010 Personal history of colon polyps
CPT/HCPCS: 88305-TC

== ENCOUNTER 2023-03-31 13:45 | Emergency (ER) | payer OTHER ==
[2023-03-31 14:02] VITALS: BP 151/80; PULSE 108; RESP 18; TEMP 97.5; BMI 37.2
== END 2023-03-31 15:50 | disposition home or self-care (01) ==
LOC: FER 13:45
DX: M25.562 Pain in left knee (principal); S89.92XA Unspecified injury of left lower leg, initial encounter; R22.42 Localized swelling, mass and lump, left lower limb; X50.1XXA Overexertion from prolonged static or awkward postures, initial encounter
CPT/HCPCS: 73562-TC-LT-FY; 99283-25